=== PATIENT | born 1970 | race Caucasian/White ===

== ENCOUNTER 2024-07-18 10:21 | Outpatient (CLI) | payer OTHER, SELFPAY | END 2024-07-18 10:22 | disposition home or self-care (01) | PROVIDERS: Visit Provider Specialist | DX: G47.33 Obstructive sleep apnea (adult) (pediatric) (principal); G47.36 Sleep related hypoventilation in conditions classified elsewhere | CPT/HCPCS: G0399 ==

== ENCOUNTER 2024-11-23 20:00 | Outpatient (CLI) | payer OTHER, SELFPAY | END 2024-11-23 20:01 | disposition home or self-care (01) | LOC: SLEEP 22:16 | PROVIDERS: Visit Provider Specialist | DX: G47.33 Obstructive sleep apnea (adult) (pediatric) (principal) | CPT/HCPCS: 95811 ==